=== PATIENT | female | born 1935 | race Caucasian/White ===

== ENCOUNTER 2022-04-15 17:30 | Inpatient (IN) | payer MEDICARE, OTHER, SELFPAY ==
[2022-04-15] VITALS (31 sets, daily range): BP systolic 92–120; BP diastolic 54–67; PULSE 87–134; RESP 4–39; TEMP 36.9; O2SAT 40–98
--- NOTE | 2022-04-15 17:35 | ED_ITS ---
HPI - Fall General: Chief Complaint: Fall Stated Complaint: Fall Time Seen by Provider: 04/15/22 17:34 History of Present Illness: Ms. Meredith is an 86-year-old lady with history of COPD, chronic hypoxic respiratory failure presenting to the emergency department due to fall. She reports walking and simply falling, denies specific known provoking factor primarily landed on the back of her head left shoulder. Immediately had pain. Overall intensity symptoms was severe however is improved with EMS administered fentanyl. Currently on a course of steroids for COPD exacerbation, denies anticoagulation use. No other specific changes in health, exacerbating, or alleviating factors identified. Fall from: standing Loss of consciousness: None Prolonged down time: unclear Symptoms prior to fall: none Location of injury: head Location of injury - extremities: Left: shoulder Severity: moderate Quality: sharp and aching Associated symptoms-after fall: Reports no associated symptoms Review of Systems General: Reports: 10 or more systems reviewed and unremarkable except in HPI and below PFSH ED PFSH: Medical History Chronic hypoxemic respiratory failure Chronic lymphocytic leukemia Compression fracture COPD (chronic obstructive pulmonary disease) Surgical History H/O: hysterectomy S/P hip replacement Family History Denies family history of CAD (coronary artery disease) Social History Smoking and tobacco status: former smoker Alcohol intake: never Substance/Drug Use: never Housing: House Physical Exam Const: COMMON NORMALS: alert GENERAL APPEARANCE: cooperative and well developed HENMT: COMMON NORMALS: normocephalic HEAD & SCALP: normocephalic THROAT: posterior oropharynx normal OTHER: Posterior head tenderness palpation. No cherry signs or raccoon eyes. No hemotympanum. No otorrhea or rhinorrhea. Jaw alignment normal. Dentition baseline. No obvious bony step-offs. No septal hematoma. No evidence of ocular entrapment. Eye: COMMON NORMALS: conjunctivae normal CONJUNCTIVA: Yes conjunctivae normal SCLERA: sclerae normal Neck/C-Spine: COMMON NORMALS: supple GENERAL: Yes trachea midline OTHER: Cervical spine tenderness palpation Resp: COMMON NORMALS: normal respiratory effort EFFORT & INSPECTION: Yes able to speak in complete sentences Cardio: RATE: tachycardic RHYTHM: abnormal rhythm irregularly irregular GI: COMMON NORMALS: Soft to palpation PALPATION: Yes Soft to palpation and Yes Tenderness to palpation present (GI) Extremity: NARRATIVE EXTREMITY EXAM: Left upper extremity tenderness palpation with limitation of range of motion. CMS intact. GENERAL: Yes normal exam except as noted and No edema Neuro: COMMON NORMALS: moves all extremities SENSORIUM/ORIENTATION: Yes alert and No Orientation impaired Psych: COMMON NORMALS: mental status grossly normal and Normal thought process present THOUGHT PROCESS: Normal thought process present Course Vital Signs: Vital signs: Vital Signs Temperature 98.6 F 04/17/22 11:10 Pulse Rate 84 04/17/22 11:34 Respiratory Rate 18 04/17/22 11:34 Blood Pressure 107/77 04/17/22 11:10 Pulse Oximetry 94 04/17/22 11:34 Oxygen Delivery Me thod 04/17/22 11:34 Oxygen Flow Rate 7 04/17/22 11:34 MDM - Fall Medical Decision Making 86-year-old lady presenting due to fall with head injury. Head to toe exam performed and as noted above. EKG notable for atrial fibrillation with rapid ventricular response, no STEMI. Labs notable for significant leukocytosis, normocytic anemia and normal platelet count noted. Metabolic panel with mildly decreased chloride and mildly increased anion gap. 2-hour delta troponin is negative. BNP mildly elevated. Negative viral studies. CT head and cervical spine with degenerative changes however no acute traumatic injury. CT chest abdomen pelvis without acute traumatic thorax injury. CT abdomen pelvis with compression fracture which appears somewhat worse however indeterminate chronicity. Incidental findings discussed with patient. Left humerus fracture identified on exam and x-ray. Very remote oncology notes were reviewed. Laboratory studies also reviewed. Patient has history of CLL however had improvement and now appears not worsening. Per discussion with laboratory staff no blast cells identified on slide. Discussed with patient's family and the patient. Patient only had moderate symptom control with morphine and analgesia. She was given medication for rate control. The results of ED evaluation were discussed with the patient including plan for admission due to requirement for level of care not available if discharged to prevent significant worsening/deterioration. Patient agreeable with plan. Discussed with hospitalist service who was agreeable to admit patient. Medical Records I reviewed the patient's medical records. Lab Data I reviewed the patient's lab results. 04/15/22 18:50 04/15/22 18:50 Radiology Impressions Cervical Spine CT 04/15/22 17:48 IMPRESSION: Degenerative changes in the cervical spine. No fracture is identified. Chest/Abdomen/Pelvis CT 04/15/22 17:48 IMPRESSION: 1. No acute traumatic injury to the thorax. 2. Coronary calcifications and other nonacute findings as described. Mild dilatation of main pulmonary artery. IMPRESSION: 1. Comparison CT October 2015. Interval worsening of moderate-severe L1 vertebral compression deformity with a small retropulsed element however this remains of indeterminate chronicity. Clinical correlation is needed. No significant subluxation. L4 compression deformity is stable. No acute osseous findings otherwise. 2. Otherwise no acute visceral/soft tissue injury. 3. Other nonacute findings as described.[address] Head CT 04/15/22 17:48 IMPRESSION: Atrophy and chronic ischemic changes. No acute intracranial abnormality. Humerus X-Ray 04/15/22 17:48 IMPRESSION: Fracture proximal left humerus. Chest X-Ray 04/15/22 20:46 IMPRESSION: Chronic changes more on the right than on the left corresponding with findings on the recent CT scan. No acute infiltrate is identified. Laboratory Results WBC 45.0 10^3/uL (4.0-10.0) H* 04/15/22 18:50 RBC 3.28 10^6/uL (4.1-5.3) L 04/15/22 18:50 Hgb 9.1 g/dL (11.5-15.3) L 04/15/22 18:50 Hct 29.7 % (37.0-47.0) L 04/15/22 18:50 MCV 90.5 fl (81-99) 04/15/22 18:50 MCH 27.7 pg (28.0-34.0) L 04/15/22 18:50 MCHC 30.6 g/dL (30.0-36.0) 04/15/22 18:50 RDW 15.6 % (12.1-15.1) H 04/15/22 18:50 Plt Count 249 10^3/cmm (130-400) 04/15/22 18:50 MPV 10.3 fL (7.4-10.4) 04/15/22 18:50 Neut % (Auto) 40.4 % 04/15/22 18:50 Lymph % (Auto) 55.6 % 04/15/22 18:50 [place] % (Auto) 3.2 % 04/15/22 18:50 Eos % (Auto) 0.0 % 04/15/22 18:50 Baso % (Auto) 0.2 % 04/15/22 18:50 Neut # (Auto) 18.19 10^3/uL (1.8-7.7) H 04/15/22 18:50 Lymph # (Auto) 25.0 10^3/uL (0.8-4.8) H 04/15/22 18:50 [place] # (Auto) 1.4 10^3/uL (0.2-0.9) H 04/15/22 18:50 Eos # (Auto) 0.0 10^3/uL (0.0-0.8) 04/15/22 18:50 Baso # (Auto) 0.1 10^3/uL (0.0-0.1) 04/15/22 18:50 Nucleated RBC % (auto) 0 % 04/15/22 18:50 Nucleated RBCs # 0.0 /100WBC 04/15/22 18:50 PT 15.60 SECONDS (12.1-14.9) H 04/15/22 18:50 INR 1.21 (0.8-1.2) H 04/15/22 18:50 Sodium 136 mmol/L (136-145) 04/15/22 18:50 Potassium 4.4 mmol/L (3.5-5.1) 04/15/22 18:50 Chloride 93 mmol/L (98-107) L 04/15/22 18:50 Carbon Dioxide 33 mmol/L (22-29) H 04/15/22 18:50 Anion Gap 14.4 (5-19) 04/15/22 18:50 BUN 15 mg/dL (8-23) 04/15/22 18:50 Creatinine 0.5 mg/dL (0.5-0.9) 04/15/22 18:50 GFR Calculation Not Reportable 04/15/22 18:50 Glucose 145 mg/dL (65-115) H 04/15/22 18:50 Calculated Osmolality 285 mOsm/kg (285-295) 04/15/22 18:50 Calcium 8.5 mg/dL (8.5-10.5) 04/15/22 18:50 Magnesium 1.8 mg/dL (1.7-2.3) 04/15/22 18:50 Total Bilirubin 0.7 mg/dL (0.15-1.2) 04/15/22 18:50 AST 16 U/L (0-32) 04/15/22 18:50 ALT 11 U/L (0-33) 04/15/22 18:50 Alkaline Phosphatase 72 U/L (35-105) 04/15/22 18:50 Creatine Kinase 117 U/L (26-192) 04/15/22 18:50 Troponin T Baseline 13 ng/L (0-10) H 04/15/22 18:50 Troponin T 120 Minute 14.55 ng/L (0-10) H 04/15/22 21:00 Delta Troponin T 1.55 ABS# (0-10) 04/15/22 21:00 Troponin T Hi Sens 6Hr 21.12 ng/L (0-10) H 04/16/22 01:05 Troponin T Hi Sens 6Hr Delta 8.12 ng/L (0-12) 04/16/22 01:05 NT-Pro-B Natriuret Pep 841 pg/mL (0-450) H 04/15/22 18:50 Total Protein 5.7 g/dL (6.6-8.7) L 04/15/22 18:50 Albumin 3.3 g/dL (3.5-5.2) L 04/15/22 18:50 Globulin 2.4 g/dL (1.3-4.6) 04/15/22 18:50 TSH 1.28 uIU/mL (0.27-4.20) 04/15/22 18:50 Coronavirus 229E (PCR) Not detected (NOT DETECT) 04/15/22 21:56 SARS-CoV-2 (PCR) Not detected (NOT DETECT) 04/15/22 21:56 Blood Type O Positive 04/15/22 18:50 Rho(D) Type Positive 04/15/22 18:50 Antibody Screen Negative 04/15/22 18:50 Discharge Plan Discharge Patient Disposition: Admitted As Inpatient Admit Provider: Yuliana Roger Clinical Impression: Fall, Fracture of proximal end of left humerus, Atrial fibrillation, new onset, Chronic lymphocytic leukemia, COPD (chronic obstructive pulmonary disease), Chronic hypoxemic respiratory failure, Atrial fibrillation with RVR Condition: Stable Coding Level of Care Code ED [place] Equipment Maintenance Supervisor for Vish Lock
--- NOTE | 2022-04-15 17:48 | XRR_ITS ---
PROCEDURE INFORMATION: Exam: XR Left Humerus Exam date and time: 04/15/2022 5:54 PM Age: 86 years old Clinical indication: Pain; Upper arm; Left; Additional info: Fall, distal pain TECHNIQUE: Imaging protocol: Radiologic exam of the Left humerus. Views: 2 or more views. COMPARISON: No relevant prior studies available. FINDINGS: Limitations: Study is somewhat limited due to positioning. Bones/joints: There is impacted mildly displaced fracture surgical neck of the left humerus. Soft tissues: Mild swelling XR/[place] [id number] IMPRESSION: Fracture proximal left humerus.
--- NOTE | 2022-04-15 17:48 | CTR_ITS ---
PROCEDURE INFORMATION: Exam: CT Chest With Contrast; Diagnostic Exam date and time: 04/15/2022 6:28 PM Age: 86 years old Clinical indication: Injury or trauma; Fall; Abdominal wall; Blunt trauma (contusions or hematomas) TECHNIQUE: Imaging protocol: Diagnostic computed tomography of the chest with contrast. Radiation optimization: All CT scans at this facility use at least one of these dose optimization techniques: automated exposure control; mA and/or kV adjustment per patient size (includes targeted exams where dose is matched to clinical indication); or iterative reconstruction. Contrast material: OMNI 350; Contrast volume: 100 ml; Contrast route: INTRAVENOUS (IV); COMPARISON: CR XR chest 2V* [id number] 04/26/2016 2:49 PM RADIATION DOSE METRICS: Total DLP (mGy-cm): 777.79 FINDINGS: Lungs: Calcified left lower lobe pulmonary granuloma. Linear subsegmental atelectasis-scarring with areas of small patchy and triangular-shaped density in the anterior lingular region, likely postinflammatory scarring. Pleuroparenchymal thickening/scarring in the apices, right greater than left. Pleural spaces: Unremarkable. No pneumothorax. No pleural effusion. Heart: Normal heart size with coronary calcification. Heavily calcified mitral valve annulus. Minimal pericardial thickening/trace pericardial effusion, increased since prior exam. Lymph nodes: Multiple calcified mediastinal hilar noncalcified lymph nodes consistent with chronic granulomatous disease. Vasculature: Mild dilatation of main pulmonary artery at 3.4 cm. Bones/joints: Osteopenia. Multilevel vertebral disc degeneration and endplate osteophytes. No acute osseous findings otherwise. Soft tissues: No acute findings. Other findings: Several images are somewhat degraded by artifacts from the patient's arm(s.) PROCEDURE INFORMATION: Exam: CT Abdomen And Pelvis With Contrast Exam date and time: 04/15/2022 6:28 PM Age: 86 years old Clinical indication: Injury or trauma; Fall; Abdominal wall; Blunt trauma (contusions or hematomas) TECHNIQUE: Imaging protocol: Computed tomography of the abdomen and pelvis with contrast. Radiation optimization: All CT scans at this facility use at least one of these dose optimization techniques: automated exposure control; mA and/or kV adjustment per patient size (includes targeted exams where dose is matched to clinical indication); or iterative reconstruction. Contrast material: OMNI 350; Contrast volume: 100 ml; Contrast route: INTRAVENOUS (IV); COMPARISON: CT abdomen pelvis wo con [id number] 11/05/2015 5:48 PM RADIATION DOSE METRICS: Total DLP (mGy-cm): 777.79 FINDINGS: Liver: Normal. No mass. Gallbladder and bile ducts: Normal. No calcified stones. No ductal dilation. Pancreas: Normal. No ductal dilation. Spleen: Normal spleen size with numerous calcified splenic granulomas. Adrenal glands: Normal. No mass. Kidneys and ureters: No obstructing calculus. No hydronephrosis. Stomach and bowel: Moderate-large colorectal stool burden with no bowel obstruction, pneumatosis or suspicious bowel wall thickening. Colonic diverticulosis. Appendix: No evidence of appendicitis. Intraperitoneal space: Unremarkable. No free air. No significant fluid collection. Vasculature: Diffuse arterial calcifications without aneurysm. Lymph nodes: No enlarged lymph nodes. Urinary bladder: Unremarkable as visualized. Reproductive: Unremarkable as visualized. Bones/joints: Osteopenia. Multilevel vertebral disc degeneration and endplate osteophytes. No acute osseous findings otherwise. Stable moderate-severe L4 compression deformity. Moderate severe L1 vertebral compression deformity which has worsened since prior exam with small retropulsed element and no subluxation. Metallic surgical hardware in bilateral hips resulting in streak artifacts partially obscuring adjacent anatomy. Soft tissues: Calcified injection granuloma in the right posterior gluteal subcutaneous tissue. No acute soft tissue findings otherwise. CT/CT chest abd pel w con* IMPRESSION: 1. No acute traumatic injury to the thorax. 2. Coronary calcifications and other nonacute findings as described. Mild dilatation of main pulmonary artery. IMPRESSION: 1. Comparison CT October 2015. Interval worsening of moderate-severe L1 vertebral compression deformity with a small retropulsed element however this remains of indeterminate chronicity. Clinical correlation is needed. No significant subluxation. L4 compression deformity is stable. No acute osseous findings otherwise. 2. Otherwise no acute visceral/soft tissue injury. 3. Other nonacute findings as described.1
--- NOTE | 2022-04-15 17:48 | CTR_ITS ---
PROCEDURE INFORMATION: Exam: CT Cervical Spine Without Contrast Exam date and time: 04/15/2022 6:11 PM Age: 86 years old Clinical indication: Injury or trauma; Fall; Blunt trauma TECHNIQUE: Imaging protocol: Computed tomography of the cervical spine without contrast. Radiation optimization: All CT scans at this facility use at least one of these dose optimization techniques: automated exposure control; mA and/or kV adjustment per patient size (includes targeted exams where dose is matched to clinical indication); or iterative reconstruction. COMPARISON: CR (UP EXM, ) 04/15/2022 5:54 PM RADIATION DOSE METRICS: Total DLP (mGy-cm): 1278.34 FINDINGS: Bones/joints: There is decreased height of the C5-C6 and C6-C7 disc spaces with anterior and posterior osteophytes. Degenerative changes are present in facet joints bilaterally. Lungs: Lung apices are normal. Soft tissues: Prevertebral soft tissues are unremarkable. CT/CT cervical spin wo con* [id number] IMPRESSION: Degenerative changes in the cervical spine. No fracture is identified.
--- NOTE | 2022-04-15 17:48 | CTR_ITS ---
PROCEDURE INFORMATION: Exam: CT Head Without Contrast Exam date and time: 04/15/2022 6:11 PM Age: 86 years old Clinical indication: Injury or trauma; Fall; Blunt trauma (contusions or hematomas) TECHNIQUE: Imaging protocol: Computed tomography of the head without contrast. Radiation optimization: All CT scans at this facility use at least one of these dose optimization techniques: automated exposure control; mA and/or kV adjustment per patient size (includes targeted exams where dose is matched to clinical indication); or iterative reconstruction. COMPARISON: CT Head wo IV contrast* [id number] 10/07/2009 12:16 AM RADIATION DOSE METRICS: Total DLP (mGy-cm): 1278.34 FINDINGS: Brain: There is moderate cortical atrophy. Low-density changes in the white matter are consistent with nonspecific small vessel chronic ischemic change. There is no intracranial mass, hemorrhage or edema. The atrophy has progressed compared with 10/07/2009. Cerebral ventricles: No ventriculomegaly. Paranasal sinuses: Visualized sinuses are unremarkable. No fluid levels. Mastoid air cells: Visualized mastoid air cells are well aerated. Bones/joints: Bone windows do not show any calvarial fracture. Soft tissues: There is some chronic appearing cutaneous lesions in the left frontal scalp CT/CT head wo con* [id number] IMPRESSION: Atrophy and chronic ischemic changes. No acute intracranial abnormality.
--- NOTE | 2022-04-15 17:49 | ECG_ITS ---
[facility] Test Date: 2022-04-15 Pat Name: Gena Meredith Department: Room: Gender: Female Director Stars: : 1935 Requested By: Keny Daniel Order Number: [id number] Jaime MD: Heydi Tyler M.D. Measurements Intervals [place] Rate: 111 P: 0 CO: 0 QRS: 38 QRSD: 114 T: 62 QT: 356 QTc: 484 Interpretive Statements SINUS RHYTHM WITH FEQUENT PAC'S INDETERMINATE AXIS INCOMPLETE RIGHT BUNDLE BRANCH BLOCK MODERATE ST DEPRESSION [0.05+ mV ST DEPRESSION] Compared to ECG 04/26/2016 18:44:40 Indeterminate axis now present Incomplete right bundle-branch block now present ST (T wave) deviation still present Electronically Signed On 04-17-2022 8:22:15 REQUIREMENTS ENGINEER by Heydi Tyler M.D. [id number]
[2022-04-15] MEDS: iohexol 350 mg/mL 500 mL Btl (per mL) IV (18:06)
[2022-04-15 19:07] LABS: Basophils # 0.1 10^3/uL (0.0-0.1); Basophils % 0.2 %; Hematocrit 29.7 % (37.0-47.0); Hemoglobin 9.1 g/dL (11.5-15.3); Lymphocytes % 55.6 %; Mean Corpuscular HGB Conc 30.6 g/dL (30.0-36.0); Mean Corpuscular Hemoglobin 27.7 pg (28.0-34.0); Mean Corpuscular Volume 90.5 fl (81-99); Mean Platelet Volume 10.3 fL (7.4-10.4); Monocytes # 1.4 10^3/uL (0.2-0.9); Monocytes % 3.2 %; Neutrophils # 18.19 10^3/uL (1.8-7.7); Neutrophils % 40.4 %; Nucleated Red Blood Cells % 0 %; Platelet Count 249 10^3/cmm (130-400); Red Blood Count 3.28 10^6/uL (4.1-5.3); Red Cell Distribution Width 15.6 % (12.1-15.1)
[2022-04-15 19:18] LABS: INR 1.21 (0.8-1.2)
[2022-04-15] MEDS: metoprolol tartrate 1 mg/1 mL SDV 5 mL 2.5 MG IVP (19:29)
[2022-04-15] MEDS: morphine 4 mg/mL SDV 1 mL IVP (19:29)
--- NOTE | 2022-04-15 19:29 | ECG_ITS ---
[facility] Test Date: 2022-04-15 Pat Name: Gena Meredith Department: Room: Gender: Female Employment Services Director: : 1935 Requested By: Keny Daniel Order Number: [id number] Jaime MD: Heydi Tyler M.D. Measurements Intervals [place] Rate: 115 P: 0 TN: 0 QRS: 40 QRSD: 117 T: 67 QT: 340 QTc: 471 Interpretive Statements SINUS RHYTHM WITH FEQUENT PAC'S OR VENTRICULAR PREMATURE COMPLEXES INDETERMINATE AXIS INCOMPLETE RIGHT BUNDLE BRANCH BLOCK MODERATE ST DEPRESSION [0.05+ mV ST DEPRESSION] Compared to ECG 04/15/2022 18:03:51 Ventricular premature complex(es) now present ST (T wave) deviation still present Electronically Signed On 04-18-2022 6:09:35 AUTO TECHNICIAN by Heydi Tyler M.D. [email or web address] [email or web address] [id number]
[2022-04-15 19:30] LABS: Alanine Aminotransferase 11 U/L (0-33); Magnesium 1.8 mg/dL (1.7-2.3); Potassium 4.4 mmol/L (3.5-5.1); Total Bilirubin 0.7 mg/dL (0.15-1.2)
[2022-04-15] MEDS: ondansetron 2 mg/ML SDV 2 mL 4 MG IVP (19:31)
[2022-04-15 19:35] LABS: Albumin Level 3.3 g/dL (3.5-5.2); Calcium 8.5 mg/dL (8.5-10.5); Carbon Dioxide 33 mmol/L (22-29); Chloride 93 mmol/L (98-107); Glucose 145 mg/dL (65-115); Osmolality Calculated 285 mOsm/kg (285-295); Sodium 136 mmol/L (136-145); Total Protein 5.7 g/dL (6.6-8.7)
[2022-04-15 19:36] LABS: Alkaline Phosphatase 72 U/L (35-105); Anion Gap 14.4 (5-19); Aspartate Amino Transferase 16 U/L (0-32); Blood Urea Nitrogen 15 mg/dL (8-23); Globulin 2.4 g/dL (1.3-4.6)
[2022-04-15 19:47] LABS: Slide Review Slide Review Perform
[2022-04-15 19:49] LABS: Troponin(5th) Baseline 13 ng/L (0-10)
[2022-04-15 19:57] LABS: Thyroid Stimulating Hormone 1.28 uIU/mL (0.27-4.20)
--- NOTE | 2022-04-15 20:46 | XRR_ITS ---
PROCEDURE INFORMATION: Exam: XR Chest Exam date and time: 04/15/2022 8:50 PM Age: 86 years old Clinical indication: Shortness of breath; Additional info: SOB TECHNIQUE: Imaging protocol: Radiologic exam of the chest. Views: 1 view. COMPARISON: CT chest abd pel w con* 04/15/2022 6:28 PM FINDINGS: Lungs: No acute appearing infiltrate is identified. There is calcified granuloma in the left upper lobe. Pleural spaces: There is pleural and parenchymal scarring in the pulmonary apices more on the right than on the left. The parenchymal changes have increased from the previous study of 04/26/2016 and there is some volume loss in the right apical region with deviation of the trachea towards the right. Heart/Mediastinum: Heart is within normal limits of size. Bones/joints: Unremarkable. XR/XR chest 1V portable [id number] IMPRESSION: Chronic changes more on the right than on the left corresponding with findings on the recent CT scan. No acute infiltrate is identified.
[2022-04-15] MEDS: ipratropium-albuterol 3 mL Neb INHALATION (20:53)
--- NOTE | 2022-04-15 20:54 | PC.NURSE ---
AT 1954 THIS NURSE ENTERED ROOM NOTED AGONAL BREATHING AND CYANOSIS PT PULSE OX OBTAINED AND WAS 40% PT PLACED ON 15 L NB AND NARCAN OBTAINED DR BELTRAN NOTIFIED, PT GIVEN 0.[address] BELTRAN AT BEDSIDE PT RESPIRATIONS IMPROVED TO 16-20 PT AWOKE RETURNED TO NORMAL COLOR. PT SPO2 MID 80s DR BELTRAN ORDERED NEB TREATMENT WHICH WAS STARTED PRIOR TO RT ARRIVAL.
--- NOTE | 2022-04-15 21:17 | P.HP_ITS ---
Providers/Chief Complaint Primary Care Provider: Christiano Laughlin MD Chief Complaint: Fall History of Present Illness Gena Meredith is a 86 year old female who is on hospice at home for end-stage COPD, uses 5 L of oxygen at home, CLL, lives with her daughter present to the hospital after sustaining a fall. Patient is not sure how she fell however as per the family she lost her balance and fell on the ground, her daughter who was at work try to get in touch with her, she was not picking up the phone call, daughter daughter came in to check on her and found out that she was laying on the floor. Duration is unknown for how long she stayed on the floor. Patient is not a reliable historian. Patient has significant leukocytosis likely related to underlying CLL Family is at the bedside 2 daughters are present at the bedside, I spoke with her medical DPOA she is stating that it is okay to transfer her to ICU if we need to use vasopressors or rate control IV infusions but she will stay DNR/DNI because she is on hospice They are agreeable at this point that anticoagulating agent is contraindicated for A. fib RVR Daughter stating that few days ago she became confused and could not speak at all, they did not think it was related to stroke but being on hospice she was not evaluated in the ER Patient is diagnosed with left humeral neck fracture, medical management for now, arm to be placed in a sling , patient is not complaining of active pain Review of Systems General: Reports: ROS unobtainable due to medical condition Medications/Allergies Allergies Allergy/AdvReac Type Severity Reaction Status Date / Time morphine Allergy Unconscious Verified 04/15/22 21:17 PFSH Acute PFSH: Medical History Chronic hypoxemic respiratory failure Chronic lymphocytic leukemia Compression fracture COPD (chronic obstructive pulmonary disease) Surgical History H/O: hysterectomy S/P hip replacement Family History Denies family history of CAD (coronary artery disease) Social History Smoking and tobacco status: former smoker Alcohol intake: never Substance/Drug Use: never Housing: House Vitals/I&O/Wt Last Vital Signs Pulse 109 H 04/15/22 20:55 Resp 30 H 04/15/22 20:55 BP 120/60 04/15/22 19:39 Pulse Ox 87 L 04/15/22 20:55 O2 Del Method 04/15/22 20:55 O2 Flow Rate 15 04/15/22 20:55 Physical Exam Narrative: Frail elderly female Currently not in any pain Looks dehydrated On 5 L nonrebreather mask Abdomen soft Variable S1-S2 A. fib RVR heart rate 120s Lower extremity no edema Seborrheic keratosis Patient is able to answer simple questions Able to follow commands to some extent Oriented to herself Data 04/15/22 18:50 04/15/22 18:50 A&P Assessment and plan (1) Fall: (2) Fracture of proximal end of left humerus: (3) Atrial fibrillation, new onset: (4) Atrial fibrillation with RVR: Plan Mechanical fall Check CPK Left humeral neck fracture Conservative management Arm in a sling Opioids for pain management Bowel regimen added New onset A. fib RVR AV bosotn blocking agent to keep her heart rate below 110 Not a good candidate to be on any anticoagulating agent Family is agreeable History of CLL, significant leukocytosis noted Currently patient is on hospice for end-stage COPD and CLL Oxygen dependent COPD at baseline requires 4 to 4.5 L, currently she is doing well on 5 L nonrebreather mask She was given morphine that made her hypoxic due to hypoventilation however she improved by the time I evaluated her She eats mechanical soft diet Added DVT prophylaxis DNR/DNI On hospice, family does not want to send her to a skilled nursing Attestations Medical Necessity Statement*: Anticipating discharge within 48 hours Time Spent in Patient Care: 40 Coding Level of Care Code Acute Pulp Maker for Chg Fwd Diagnoses Fall W19.XXXA Fracture of proximal end of left humerus S42.202A Atrial fibrillation, new onset I48.91 Atrial fibrillation with RVR I48.91
[2022-04-15 21:20] LABS: NT Pro B Type Natriuretic Pept 841 pg/mL (0-450)
[2022-04-15 21:29] LABS: Troponin 5 2HR 14.55 ng/L (0-10)
[2022-04-15 21:30] LABS: Troponin 5 2HR Delta 1.55 ABS# (0-10)
[2022-04-15] MEDS: dilTIAZem 100 MG in sodium chloride 0.9% (add-van) 100 ML IV (21:35)
[2022-04-15] MEDS: ketorolac 30 mg/mL INJ 15 MG IVP (21:35)
--- NOTE | 2022-04-15 23:03 | ECG_ITS ---
[facility] Test Date: 2022-04-15 Pat Name: Gena Meredith Department: Room: 102 Gender: Female Drafter Civil (Cad): : 1935 Requested By: Keny Daniel Order Number: [id number] Jaime MD: Heydi Tyler M.D. Measurements Intervals [place] Rate: 100 P: 0 FL: 0 QRS: -18 QRSD: 122 T: 33 QT: 365 QTc: 472 Interpretive Statements SINUS RHYTHM WITH FEQUENT PAC'S RIGHT BUNDLE BRANCH BLOCK Compared to ECG 04/15/2022 19:29:41 Right bundle-branch block now present Ventricular premature complex(es) no longer present Aberrant conduction of supraventricular beat(s) no longer present Indeterminate axis no longer present Incomplete right bundle-branch block no longer present ST (T wave) deviation no longer present Electronically Signed On 04-19-2022 8:04:01 RUBBER STAMP MAKER by Heydi Tyler M.D. [id number]
[2022-04-15 23:44] LABS: Adenovirus Not Detected (NOT DETECT); Chlamydia Pneumoniae Not Detected (NOT DETECT); Coronavirus 229E,HKU1,NL63,OC4 Not Detected (NOT DETECT); Human Metapneumovirus Not Detected (NOT DETECT); Human Rhinovirus/Enterovirus Not Detected (NOT DETECT); Influenza A Not Detected (NOT DETECT); Influenza A H1 Not Detected (NOT DETECT); Influenza A H1-2009 Not Detected (NOT DETECT); Influenza A H3 Not Detected (NOT DETECT); Influenza B Not Detected (NOT DETECT); Mycoplasma Pneumoniae Not Detected (NOT DETECT); Parainfluenza Virus Type 1 Not Detected (NOT DETECT); Parainfluenza Virus Type 2 Not Detected (NOT DETECT); Parainfluenza Virus Type 3 Not Detected (NOT DETECT); Parainfluenza Virus Type 4 Not Detected (NOT DETECT); Respiratory Syncytial Virus A Not Detected (NOT DETECT); Respiratory Syncytial Virus B Not Detected (NOT DETECT); SARS-COV-2 Not Detected (NOT DETECT)
[2022-04-16] VITALS (27 sets, daily range): BP systolic 85–119; BP diastolic 48–68; PULSE 75–118; RESP 15–30; TEMP 36.7–36.9; O2SAT 82–96; BMI 24.6
[2022-04-16 00:06] LABS: Creatine Phosphokinase 117 U/L (26-192)
[2022-04-16] MEDS: sodium chloride 0.9% 1,000 ML 75 ML IV ×2 (00:19→14:47)
[2022-04-16] MEDS: lactated ringers 500 ML 999 ML IV (00:19)
[2022-04-16 01:48] LABS: Troponin 5 6HR 21.12 ng/L (0-10)
[2022-04-16 01:51] LABS: Troponin 5 6HR Delta 8.12 ng/L (0-12)
[2022-04-16] MEDS: acetaminophen 500 mg Tablet PO (04:10)
[2022-04-16] MEDS: sennosides-docusate Tablet 1 TAB PO (10:20)
[2022-04-16] MEDS: metoprolol tartrate 25 mg Tablet PO ×2 (10:20→21:04)
[2022-04-16] MEDS: ipratropium-albuterol 3 mL Neb INHALATION ×3 (10:55→22:48)
--- NOTE | 2022-04-16 12:39 | PM.PN ---
Subjective Subjective: Seen this morning. Daughters both present at bedside. Patient states baseline home oxygen is 4 L. Patient had a fall yesterday where she stated she fell backwards while she was going towards the kitchen. She had a fracture of her left humerus. Right now has a sling on. No wrist drop noted. Does feel short of breath which she says is her baseline. Patient currently on IV fluids and getting a Cardizem drip at 5/h. She says her sputum color has changed to yellow or greenish. She does have end-stage COPD. Vitals/I&O/Wt Last Vital Signs Temp 98.5 F 04/16/22 03:52 Pulse 110 H 04/16/22 11:09 Resp 26 H 04/16/22 11:09 BP 103/49 04/16/22 03:52 Pulse Ox 89 L 04/16/22 11:09 O2 Del Method 04/16/22 11:09 O2 Flow Rate 12 04/16/22 11:09 04/15/22 04/16/22 04/16/22 22:59 06:59 14:59 Intake Total 560 / 560 Output Total 600 / 600 Balance -40 / -40 Physical Exam Narrative: Frail elderly female Currently not in any pain sitting up in bed On 6.5 L nasal cannula at this time S1-S2, heart sounds are loud, no apparent murmurs Rhythm A. fib on the monitor irregularly irregular, heart rate 90-1 10. Lower extremity no edema Seborrheic keratosis Patient is able to answer simple questions Able to follow commands Oriented to herself and knows she is in the hospital No wrist drop noted at left upper extremity. Does not really have much conversational dyspnea but says she is short of breath at times. Urinary Catheter Management: Mahmood: Cath Placed During This Visit: yes Reason for Continuing Indwelling Catheter: Acute Urinary Retention or Obstruction Urinary Catheter Date of Insertion: 04/15/22 Urinary Catheter Time of Insertion: 23:35 Data 04/15/22 18:50 04/15/22 18:50 A&P Assessment and plan (1) Fall: (2) Fracture of proximal end of left humerus: (3) Atrial fibrillation, new onset: (4) CLL (chronic lymphocytic leukemia): (5) Hospice care patient: Plan #Mechanical fall, left humeral neck fracture #A. fib with RVR #End-stage COPD, hospice patient #History of CLL #Hospice ? Discussed with on-call orthopedic surgeon. Patient would be a candidate for conservative management at this time. Continue arm in sling. Manage pain. Follow-up in office within a week. ? Titrate off Cardizem drip at this time. Patient's blood pressure is soft. ? I will try amiodarone ? Patient not a candidate for anticoagulating agent. Family agreeable. ? We will place on Solu-Medrol 40 every 8 hours ? Azithromycin 500 daily ? DuoNeb every 4 hours scheduled ? Mechanical soft diet ? Continue DVT prophylaxis ? Home with hospice once atrial fibrillation is stable DNR/DNI Family at bedside. Answered all questions. Attestations Medical Necessity Statement*: Anticipating discharge within 48 hours Time Spent in Patient Care: 40 Coding Level of Care Code Acute Envelope Stamping Machine Operator for Corazong Fwd Diagnoses Fall W19.XXXA Fracture of proximal end of left humerus S42.202A Atrial fibrillation, new onset I48.91 CLL (chronic lymphocytic leukemia) C91.10 Hospice care patient Z51.5
[2022-04-16] MEDS: azithromycin 500 MG in sodium chloride 0.9% 250 ML 250 MG IV (13:47)
[2022-04-16] MEDS: haloperidol inj 5 mg/mL INJ 1 mL 1 MG IM (15:02)
[2022-04-16] MEDS: HYDROmorphone 1 mg/mL INJ 1 mL 0.2 MG IVP (21:03)
--- NOTE | 2022-04-16 21:09 | PC.NURSE ---
Patient confused this shift. Patient removed telemetry and IV access. Patient cleaned with linen change. New IV access and telemetry placed at this time. Patient c/o pain to left arm. Administered pain medication as ordered and documented. Will continue to monitor.
--- NOTE | 2022-04-16 22:18 | PC.NURSE ---
Patient SpO2 decreasing high 70s to low 80s. Patient has O2 currently at 9L with HF cannula. Patient lungs with crackles at this time. Informed Dr Roger and received orders to stop fluids at this time and to give Lasix 20mg IVP x1 dose now. RBVO
[2022-04-16] MEDS: FUROsemide 10 mg/mL SDV 2mL 20 MG IVP (22:25)
[2022-04-16] MEDS: budesonide 0.5 mg/2 mL Neb INHALATION (22:48)
[2022-04-17] VITALS (8 sets, daily range): BP systolic 107–135; BP diastolic 58–77; PULSE 78–140; RESP 18–30; TEMP 36.4–37; O2SAT 91–97
[2022-04-17] MEDS: HYDROmorphone 1 mg/mL INJ 1 mL 0.2 MG IVP ×2 (00:03→09:37)
--- NOTE | 2022-04-17 05:22 | PC.NURSE ---
Patient has had her SpO2 decrease into the 70s this shift while on 10L HF cannula. Heart rate varies from 80s to 140s. Informed Dr Roger of patient condition. Doctor informed that patient does not want aggressive measure taken. Spoke with patient's daughters Anne-Marie and Jazlyn per doctors request. Both informed me that they do not want any mechanical ventilation of any kind. Both daughters informed this RN that patient takes Xanax 0.25mg PO twice daily and has done so for many years and can take it up to 3 times per day if needed as ordered by Dr Laughlin. Daughters are upset that this was not ordered for her here and are concerned this may have contributed to her behavior yesterday. Patient also uses nebulized breathing treatments 5 to 6 times a day and as much as every 2 hours at home. They inform me that this was all ordered by Dr Laughlin due to her end-stage COPD.
[2022-04-17] MEDS: ipratropium-albuterol 3 mL Neb INHALATION (08:29)
[2022-04-17] MEDS: budesonide 0.5 mg/2 mL Neb INHALATION (08:29)
--- NOTE | 2022-04-17 09:50 | PC.NURSE ---
physician orders to change PO xanax to 0.25 IV ativan
--- NOTE | 2022-04-17 09:55 | PC.NURSE ---
Patient refused PO metoprolol physician orders to give 5mg IVP
[2022-04-17] MEDS: metoprolol tartrate 1 mg/1 mL SDV 5 mL 5 MG IVP (10:33)
[2022-04-17] MEDS: LORazepam 2 mg/mL INJ 1 mL 0.25 MG IVP (10:33)
--- NOTE | 2022-04-17 13:25 | P.PN_ITS ---
Subjective Subjective: Seen this morning. Patient appears to be in distress. She is moaning in pain and also appears short of breath. She is on 7 L nasal cannula saturating 85%. Patient refused her oral medications. Discussed with RN as well. Tachycardic 130s. 5 IV metoprolol ordered, IV Ativan ordered along with Dilaudid for pain. Vitals/I&O/Wt Last Vital Signs Temp 97.5 F L 04/17/22 07:31 Pulse 110 H 04/17/22 08:00 Resp 18 04/17/22 08:00 BP 135/77 04/17/22 07:31 Pulse Ox 92 04/17/22 09:37 O2 Del Method 04/17/22 08:00 O2 Flow Rate 7 04/17/22 08:00 04/16/22 04/17/22 04/17/22 22:59 06:59 14:59 Intake Total 1038.75 / 2038.75 Output Total 450 / 450 850 / 1300 Balance 588.75 / 1588.75 -850 / 738.75 Weight last 48 hrs Weight 63.14 kg Physical Exam Narrative: Frail-appearing elderly female laying in bed appears to be in distress, tachycardic, hypoxic. Repeatedly takes off nasal cannula. Desaturates down to 50s when nasal cannula removed. At times moaning in pain. Confused and does not have her eyes open. Unable to respond or answer any questions. Will occasionally open her eyes. Half of her gown is off as patient has been agitated and she pulled it off. Does not grimace to palpation of abdomen. Lungs have coarse rhonchi and wheezing bilaterally present. Mahmood catheter in place draining concentrated urine. Patient appears chronically ill. Urinary Catheter Management: Mahmood: Cath Placed During This Visit: yes Reason for Continuing Indwelling Catheter: Acute Urinary Retention or Obstruction Urinary Catheter Date of Insertion: 04/15/22 Urinary Catheter Time of Insertion: 23:35 Data 04/15/22 18:50 04/15/22 18:50 A&P Assessment and plan (1) Fall: (2) Fracture of proximal end of left humerus: (3) Atrial fibrillation, new onset: (4) CLL (chronic lymphocytic leukemia): (5) Hospice care patient: Plan #Comfort measures only at this time. #Mechanical fall, left humeral neck fracture #A. fib with RVR #End-stage COPD, hospice patient #History of CLL #Hospice ? Called patient's daughter Anne-Marie on the phone. She stated that they were considering comfort measures however they would like to discuss with her older Sister Ciara. I called Ciara on the phone and left a voicemail. Eventually family came into the hospital. Patient seen bedside with the family and then had a family meeting in the waiting room with Ms. Hobson on FaceTime. I had a extensive discussion with them describing. His current situation and current treatment plan. They said that the patient does not want any feeding tubes and does not want to try BiPAP either. She does not want to be intubated. She had her wishes laid out very clearly. Patient repeatedly pulling her oxygen off. Once nasal cannula comes off she does desaturate down to 50s. Ciara RN also present during family meeting. Patient does have end-stage COPD and family states she was deteriorating at home as well. Patient was on hospice previously at home. They would like to pursue comfort measures at this time and they would also like us to take off any kind of tubes or IVs that the patient has. They would like us to take off to nasal cannula as well and want to focus on keeping her comfortable at this time. They do understand that morphine and Ativan will be used. I explained to them that morphine will reduce the air hunger feeling and help with the shortness of breath. They demonstrate understanding. All 3 sisters present bedside, 2 of them physically and 1 on FaceTime on the phone. At this time we will honor patient's family's wishes and pursue comfort measures at this time. We will stop nebulization treatments, antibiotics and steroids. We will stop nasal cannula at this time as well. -We will start comfort measures. RN updated. Family updated. Patient's family was given ample time to ask questions and they were all answered to their satisfaction. All in agreement that they would like to pursue keeping the patient comfortable. We will remove patient blood pressure cuff, nasal cannula. We will keep Mahmood catheter for comfort. Comfort measures only Attestations Medical Necessity Statement*: Comfort measures only. Time Spent in Patient Care: Greater than 35 minutes Coding Level of Care Code Acute Barrel Drainer for Corazong Fwd History Detailed Exam Problem Focused Medical Decision Making High Complexity Diagnoses Fall W19.XXXA Fracture of proximal end of left humerus S42.202A Atrial fibrillation, new onset I48.91 CLL (chronic lymphocytic leukemia) C91.10 Hospice care patient Z51.5 Time Spent (min) 60
[2022-04-17] MEDS: morphine 4 mg/mL SDV 1 mL IVP (13:38)
[2022-04-17] MEDS: LORazepam 2 mg/mL INJ 1 mL IVP (13:44)
[2022-04-17] MEDS: morphine 10 mg/0.5 mL oral liq UD SUBLINGUAL (16:01)
--- NOTE | 2022-04-17 17:23 | PC.NURSE ---
Patient at 1715. Physician notified and two nurses confirmed .
--- NOTE | 2022-04-17 19:01 | P.DES_ITS ---
Discharge Providers DDS Date of Admission: 04/16/22 18:45 Date Summary Completed: 04/17/22 Attending Provider at Admission: Yuliana Roger MD Time of : 17:15 Attending Provider at Discharge: Abbie Das MD Primary Care Provider: Christiano Laughlin MD DS Diagnoses Hospital Diagnoses (1) Fall: (2) Fracture of proximal end of left humerus: (3) Atrial fibrillation, new onset: (4) CLL (chronic lymphocytic leukemia): (5) Hospice care patient: Reason for Visit Reason for Visit Fall Brief History: See H&P Summary Date and Time of Date of : 04/17/22 Time of : 17:15 Summary Summary: Patient with earlier in the day made comfort care. See progress note from date 04/17 for further details. Patient at 1715. Additional Data Family: at bedside Attending/PCP notified?: I am attending Advance directives?: Yes Discharge Plan Discharge Patient Disposition: Condition: Stable Probable Cause of Probable cause of : Cardiac arrest DS Attestations Time Spent in /Discharge Care*: greater than 30 min Quality - AMI: AMI present?: No Quality - Stroke: CVA present?: No Quality - VTE: VTE present?: No Coding Level of Care Code Acute Instant Potato Processor for Chg Fwd Diagnoses Fall W19.XXXA Fracture of proximal end of left humerus S42.A Atrial fibrillation, new onset I48.91 CLL (chronic lymphocytic leukemia) C91.10 Hospice care patient Z51.5
--- NOTE | 2022-04-17 19:20 | PC.NURSE ---
Spoke with Anne-Marie, patients daughter. Anne-Marie would like to use [facility] for her mother and wishes her to be cremated as this was the patients wishes. supervisor bleach plant contacted [facility]. Nurse performed post mortem care. Awaiting home arrival.
== END 2022-04-17 21:32 | disposition expired | DRG 309 ==
LOC: ER 20:33 → CSU 23:03
PROVIDERS: Admitting Provider Internal Medicine; Emergency Provider Emergency Medicine; PCP Family Medicine; Visit Provider Internal Medicine
DX: I48.91 Unspecified atrial fibrillation (principal); C91.10 Chronic lymphocytic leukemia of B-cell type not having achieved remission; S42.202A Unspecified fracture of upper end of left humerus, initial encounter for closed fracture; J96.11 Chronic respiratory failure with hypoxia; J44.9 Chronic obstructive pulmonary disease, unspecified; Z99.81 Dependence on supplemental oxygen; W18.30XA Fall on same level, unspecified, initial encounter; Z87.891 Personal history of nicotine dependence; L82.1 Other seborrheic keratosis; Z51.5 Encounter for palliative care; I46.9 Cardiac arrest, cause unspecified
CPT/HCPCS: 36415; 51702; 70450; 71045; 71260; 72125; 73060; 74177; 80053; 80503; 82550; 83735; 83880; 84443; 84484; 85025; 85610; 86850; 86900; 87635; 93005; 94640; 96365; 96366; 96367; 96372; 96375; 99285; 99291; 99292; G0378; J0456; J1170; J1630; J1885; J1940; J2060; J2270; J2310; J2405; J2920; J2930; J3490; J7030; J7050; J7120; J7626; Q9967